=== PATIENT | male | born 1955 | race Caucasian/White ===

== ENCOUNTER 2022-06-16 08:39 | Outpatient (CLI) | payer MEDICARE, BC, SELFPAY ==
--- NOTE | 2022-06-16 09:00 | CRLHL7_ITS ---
For Patients: As a result of the Century Cures Act, medical imaging exams and procedure reports are released immediately into your electronic medical record. You may view this report before your referring provider. If you have questions, please contact your health care provider. Indication: Left-sided congestion, frequent infection Technique: Noncontrast CT of the paranasal sinuses. Coronal and sagittal reformats. Bone and soft tissue algorithms. Comparison: No relevant comparison studies available at this institution. Findings: Frontal sinuses: The frontal sinuses and frontal recesses are clear. Ethmoid air cells: Near complete opacification of the left posterior ethmoid air cells, as well as a few anterior ethmoid air cells. Clear right ethmoid sinus.. Symmetric depths of the olfactory fossa. Sphenoid sinuses: Aside from a couple foci of air, complete opacification of the left sphenoid sinus with chronic osteitis changes, and occlusion of the left sphenoid ethmoidal recess. Clear right sphenoid sinus and recess.. No optic canal or carotid canal dehiscence. Maxillary sinuses: Circumferential mucosal thickening and near opacification of the left maxillary sinus with air-fluid level. Occluded infundibulum and accessory ostium. Minimal mucosal thickening along the right maxillary sinus alveolar recess. Clear right ostiomeatal unit. Nasal cavity: Subtle leftward nasal septal deviation, with leftward projecting bone spur contacting and slightly deforming the inferior turbinate.. No large suleman bullosa. Partially paradoxical right middle turbinate. Skull base, maxilla, TMJ: Periapical lucencies involving the right maxillary central incisor and bilateral maxillary 1st molars. These project into the alveolar recesses of both maxillary sinuses, with apparent dehiscence at the left maxillary 1st molar (series 5 image 69, series 6 image 70). No mastoid effusions. Orbits: Unremarkable Imaged intracranial structures: Unremarkable Regional soft tissues: Unremarkable IMPRESSION: 1. Circumferential mucosal thickening and near complete opacification of the left maxillary sinus with air-fluid level, obstructed infundibulum and accessory ostium. Dehiscence of a left maxillary 1st molar periapical lucency into the left maxillary sinus. 2. 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 3. Partially opacified the left posterior ethmoid air cells, as well as a couple of left anterior ethmoid air cells. 4. Slight leftward nasal septal deviation, with leftward projecting spur contacting/deforming the inferior turbinate. Please note that all CT scans at this facility use dose modulation, iterative reconstruction, and/or weight-based dosing when appropriate to reduce radiation dose to as low as reasonably achievable. Dictated by Jacque Penn MD @ 06/16/2022 2:10:27 PM (Electronically Signed)
== END 2022-06-16 08:40 | disposition home or self-care (01) ==
LOC: CT 08:42
PROVIDERS: PCP Internal Medicine; Visit Provider Otolaryngology
DX: J32.9 Chronic sinusitis, unspecified (principal); J34.2 Deviated nasal septum; J32.0 Chronic maxillary sinusitis
CPT/HCPCS: 70486